=== PATIENT | male | born 1990 | race American Indian/Alaskan Native ===

== ENCOUNTER 2019-11-15 22:27 | Emergency (ER) | payer SELFPAY ==
[2019-11-15 23:46] LABS: Bilirubin,Urine NEG (Negative); Blood,Urine NEG (Negative); Color,Urine Colorless (Yellow); Protein,Urine <15 mg/dL mg/dL (Negative); RBC,Urine < 1.0 /HPF (0.0-6.0); Urobilinogen,Urine < 2.0 mg/dL (<2.0)
[2019-11-16] MEDS ORDERED: SODIUM CHLORIDE 0.9% 1000 ML 1,000 ML IV ONE ×2 (00:21→02:37)
--- NOTE | 2019-11-16 00:21 | Emergency Department Report ---
ED Fever HPI - General Chief Complaint: Fever Stated Complaint: FEVER X'S 2 DAYS PUI?: Yes Time Seen by Provider: 11/16/19 00:17 Source: patient Exam Limitations: no limitations - History of Present Illness Initial Comments: Patient is a 29-year-old male that presents emergency room with complaints of fever. Patient states his fever started yesterday. Patient states that he is also having urinary frequency. Patient denies abdominal pain. Patient denies dysuria. Patient denies flank pain. Patient complains of mild cough. Patient states the cough is dry for patient denies nausea and vomiting. Patient denies diarrhea. Patient denies chest pain. Patient denies shortness of breath. Patient states that he took ibuprofen and his fever improved. Patient denies recent travel. Patient denies recent international travel. Patient denies exposure to the novel coronavirus. Patient denies sick contacts. Patient denies fever and chills. Patient denies diarrhea. Patient denies coming in contact with anybody with symptoms of the novel coronavirus. Timing/Duration: intermittent Fever Severity/Quality: subjective Fever Therapy LINUX ARCHITECT: Ibuprofen Associated Symptoms: denies: abdominal pain, chest pain, confusion, cough, diaphoresis, headache, muscle aches, nausea/vomiting, rash, shortness of breath, sore throat, stiff neck, syncope, weakness ED Review of Systems ROS: Stated complaint: FEVER X'S 2 DAYS Other details as noted in HPI Constitutional: fever Eyes: denies: eye pain, eye discharge, vision change ENT: denies: ear pain, throat pain Respiratory: cough. denies: shortness of breath, wheezing Cardiovascular: denies: chest pain, palpitations Endocrine: no symptoms reported Gastrointestinal: denies: abdominal pain, nausea, diarrhea Genitourinary: urgency, frequency. denies: dysuria Musculoskeletal: denies: back pain, joint swelling, arthralgia Skin: denies: rash, lesions Neurological: denies: headache, weakness, paresthesias Psychiatric: denies: anxiety, depression Hematological/Lymphatic: denies: easy bleeding, easy bruising ED Past Medical Hx - Past Medical History Previous Medical History?: No - Surgical History Past Surgical History?: No - Family History Family history: no significant - Social History Smoking Status: Never Smoker Substance Use Type: None ED Physical Exam - General Limitations: No Limitations General appearance: alert, in no apparent distress - Head Head exam: Present: atraumatic, normocephalic - Eye Eye exam: Present: normal appearance - ENT ENT exam: Present: mucous membranes moist - Neck Neck exam: Present: normal inspection - Respiratory Respiratory exam: Present: normal lung sounds bilaterally. Absent: respiratory distress, wheezes, rales - Cardiovascular Cardiovascular Exam: Present: regular rate, normal rhythm. Absent: systolic murmur, diastolic murmur, rubs, gallop - GI/Abdominal GI/Abdominal exam: Present: soft, normal bowel sounds. Absent: distended, tenderness, guarding - Rectal Rectal exam: Present: deferred - Extremities Exam Extremities exam: Present: normal inspection - Back Exam Back exam: Present: normal inspection - Neurological Exam Neurological exam: Present: alert, oriented X3 - Psychiatric Psychiatric exam: Present: normal affect, normal mood - Skin Skin exam: Present: warm, dry, intact, normal color. Absent: rash ED Course Vital Signs 11/15/19 11/16/19 22:49 00:46 Temperature 101.4 F H 101.9 F H Pulse Rate 110 H Respiratory 18 Rate Blood Pressure 155/101 O2 Sat by Pulse 97 Oximetry - Reevaluation(s) Reevaluation #1: I discussed all results with patient. I discussed plan of care with patient. Patient agrees with plan of care and admission. Patient to be admitted to the hospitalist service. 11/16/19 01:49 - Consultations Consultation #1: Hospitalist consulted for admission. Hospitalist to admit patient. 11/16/19 01:50 ED Medical Decision Making - Lab Data Result diagrams: 11/16/19 00:31 11/16/19 00:31 - Radiology Data Radiology results: report reviewed CHEST 1 VIEW INDICATION: fever. COMPARISON: None. FINDINGS: Support devices: None. Heart: Normal. Lungs/Pleura: No acute pulmonary or pleural findings. IMPRESSION: 1. No acute findings. - Medical Decision Making Patient is a 29-year-old male that presents emergency room with complaints of increased urinary frequency and fever. Patient found to have elevated blood sugar and glucosuria. Patient also found to have a metabolic acidosis with an increased anion gap. Patient's clinical findings are consistent with [facility]. Patient placed on a DKA protocol and insulin drip and fluids. Patient admitted to the hospitalist service and to the ICU. - Differential Diagnosis Fever, urinary frequency, UTI, COVID, diabetes Critical Care Time: Yes Critical care time in (mins) excluding proc time.: 35 Critical care attestation.: If time is entered above; I have spent that time in minutes in the direct care of this critically ill patient, excluding procedure time. Critical Care Time: 35 MINUTES ED Disposition Clinical Impression: Increased urinary frequency, Person under investigation for COVID-19, Metabolic acidosis, Cough, Hyperglycemic hyperosmolar nonketotic coma Fever Qualifiers: Fever type: unspecified Qualified Code(s): R50.9 - Fever, unspecified Disposition: DC-09 OP ADMIT IP TO THIS HOSP Is pt being admited?: Yes Does the pt Need Aspirin: No Condition: Critical Time of Disposition: 01:47
[2019-11-16 00:49] LABS: Basophils % (Auto) 0.7 % (0.0-1.8); Eosinophils % (Auto) 0.1 % (0.0-4.3); Hemoglobin 14.1 gm/dl (11.8-15.2); Lymphocytes # (Auto) 0.5 K/mm3 (1.2-5.4); Lymphocytes % (Auto) 7.4 % (13.4-35.0); Mean Corpuscular HGB Conc 32 % (32-34); Mean Corpuscular Volume 88 fl (84-94); Monocytes # (Auto) 0.8 K/mm3 (0.0-0.8); Monocytes % (Auto) 11.9 % (0.0-7.3); Platelet Count 169 K/mm3 (140-440); Red Blood Count 5.01 M/mm3 (3.65-5.03); Red Cell Distribution Width 14.7 % (13.2-15.2)
[2019-11-16 01:12] LABS: Alanine Aminotransferase 49 units/L (7-56); Albumin 4.3 g/dL (3.9-5); BUN/Creatinine Ratio 12; Blood Urea Nitrogen 13 mg/dL (9-20); Calcium 8.2 mg/dL (8.4-10.2); Hemolysis Index 8
--- NOTE | 2019-11-16 01:13 | XRay Report ---
CHEST 1 VIEW INDICATION: fever. COMPARISON: None. FINDINGS: Support devices: None. Heart: Normal. Lungs/Pleura: No acute pulmonary or pleural findings. IMPRESSION: 1. No acute findings. Signer Name: Murali Deleon MD Signed: 11/16/2019 1:08 AM Workstation Name: [id number]
[2019-11-16] MEDS ORDERED: DEXTROSE 50% IN WATER (25GM) 50 ML SYRINGE IV PRN (01:47)
[2019-11-16] MEDS ORDERED: D5W/0.45% NACL/KCL 20 MEQ 20 MEQ/1,000 ML BAG IV SCH ×2 (02:00→09:00)
[2019-11-16] MEDS ORDERED: INSULIN REGULAR, HUMAN 100 UNITS in SODIUM CHLORIDE 0.9% 99 ML IV SCH (02:00)
[2019-11-16 02:33] LABS: BUN/Creatinine Ratio 12; Blood Urea Nitrogen 12 mg/dL (9-20); Calcium 8.4 mg/dL (8.4-10.2); Hemolysis Index 7
[2019-11-16] MEDS ORDERED: SODIUM CHLORIDE 0.9% 1000 ML 1,000 ML ONE ×2 (02:40→05:43)
[2019-11-16] MEDS ORDERED: ONDANSETRON 4 MG/2 ML INJ IV PRN (02:42)
[2019-11-16] MEDS ORDERED: ACETAMINOPHEN 325 MG TAB PO PRN (02:42)
[2019-11-16] MEDS ORDERED: SODIUM CHLORIDE 0.9% 1000 ML 1,000 ML IV SCH ×2 (02:45→12:00)
--- NOTE | 2019-11-16 03:08 | History and Physical Report ---
History of Present Illness Date of examination: 11/16/19 Date of admission: 11/16/19 02:28 Chief complaint: 29 year old male presenting with fever that started 24 hours prior to presentation, there is history of dry cough , polyuria and polydipsia. There is no history of cherst pain, shortness of breath, bodyache or dizziness History of present illness: 29 year male presenting with fever, dry cough and polyuria.There is no history of chest pain , chills, dizziness ,nausea or vomiting. Past History Past Surgical History: No surgical history Social history: no significant social history Family history: no significant family history Medications and Allergies Allergies Allergy/AdvReac Type Severity Reaction Status Date / Time No Known Allergies Allergy Verified 11/16/19 01:58 Active Meds: Active Medications Acetaminophen (Tylenol) 650 mg PO Q4H PRN PRN Reason: Pain, Mild (1-3) Dextrose (D50w (25gm) Syringe) 50 ml IV Q30MIN PRN; Protocol PRN Reason: Hypoglycemia Enoxaparin Sodium (Enoxaparin) 40 mg SUB-Q QDAY PITA Insulin Human Regular 100 (units/ Sodium Chloride) 100 mls @ 1 mls/hr IV TITR PITA; Protocol Last Admin: 11/16/19 02:33 Dose: 8 units/hr, 8 mls/hr Documented by: Sodium Chloride (Nacl 0.9% 1000 Ml) 1,000 mls @ 999 mls/hr IV BOLUS ONE Stop: 11/16/19 03:37 Last Admin: 11/16/19 02:42 Dose: 999 mls/hr Documented by: Sodium Chloride (Nacl 0.9% 1000 Ml) 1,000 mls @ 200 mls/hr IV DIRECT PITA Ondansetron HCl (Zofran) 4 mg IV Q8H PRN PRN Reason: Nausea And Vomiting Review of Systems Constitutional: weight gain, fever, no weight loss, no chills, no sweats, no night sweats, no fatigue, no weakness, no malaise Eyes: bilateral: other (NO BILATERAL EYE SYMPTOMS) Ears, nose, mouth and throat: no ear pain, no ear discharge, no nose pain, no nasal congestion, no nasal discharge, no sinus pressure, no dysphagia, no hoarseness, no sore throat, no swelling in mouth, no headache, no vertigo Cardiovascular: no chest pain, no palpitations, no syncope, no lightheadedness, no phlebitis Respiratory: cough, no excessive sputum, no shortness of breath, no wheezing Gastrointestinal: no abdominal pain, no nausea, no vomiting, no constipation, no change in bowel habits, no hematochezia, no loss of appetite, no heartburn, no indigestion Genitourinary Male: no dysuria, no hematuria, no flank pain, no urinary frequency, no urinary hesitancy, no nocturia, no genital pain, no testicular pain, no polyuria Rectal: no pain, no itching Musculoskeletal: no neck stiffness, no neck pain, no low back pain, no shooting leg pain, no hot joints, no morning stiffness, no muscle weakness, no myalgias Integumentary: no rash, no pruritis, no redness, no wounds, no jaundice, no lesions, no acne, no dryness Neurological: no head injury, no seizures, no syncope, no tremors, no ataxia, no vertigo, no headaches, no migraines, no convulsions, no change in speech, no confusion, no memory loss Psychiatric: no anxiety, no memory loss, no insomnia, no confusion, no irritability Endocrine: polydipsia, polyuria, nocturia, no cold intolerance, no excessive sweating, no flushing, no thyroid mass, no palpatations Hematologic/Lymphatic: no easy bruising, no easy bleeding, no lymphadenopathy, no lymphedema Allergic/Immunologic: no urticaria, no allergic rhinitis Exam - Constitutional Vitals: Temp Pulse Resp BP Pulse Ox 98.3 F 100 H 19 135/86 97 11/16/19 02:14 11/16/19 02:02 11/16/19 02:02 11/16/19 02:02 11/15/19 22:49 General appearance: Present: no acute distress - EENT Eyes: Present: PERRL, EOM intact ENT: hearing intact - Neck Neck: Present: supple, normal ROM. Absent: enlarged thyroid, carotid bruits - Respiratory Respiratory effort: normal - Cardiovascular Rhythm: regular Heart Sounds: Present: S1 & S2. Absent: gallop, systolic murmur, diastolic m urmur - Extremities Extremities: no ischemia, No edema Peripheral Pulses: within normal limits - Abdominal General gastrointestinal: Present: soft, non-tender, non-distended. Absent: tender, distended, rigid, hepatomegaly, splenomegaly, mass Male genitourinary: Present: deferred - Rectal Rectal Exam: deferred - Integumentary Integumentary: Present: clear, warm, dry - Musculoskeletal Musculoskeletal: strength equal bilaterally - Psychiatric Psychiatric: appropriate mood/affect - Neurologic Neurologic: CNII-XII intact Results - Labs CBC & Chem 7: 11/16/19 00:31 11/16/19 01:52 Labs: Laboratory Last Values WBC 7.0 K/mm3 (4.5-11.0) 11/16/19 00:31 RBC 5.01 M/mm3 (3.65-5.03) 11/16/19 00:31 Hgb 14.1 gm/dl (11.8-15.2) 11/16/19 00:31 Hct 44.0 % (35.5-45.6) 11/16/19 00:31 MCV 88 fl (84-94) 11/16/19 00:31 MCH 28 pg (28-32) 11/16/19 00: MCHC 32 % (32-34) 11/16/19 00:31 RDW 14.7 % (13.2-15.2) 11/16/19 00:31 Plt Count 169 K/mm3 (140-440) 11/16/19 00:31 Lymph % (Auto) 7.4 % (13.4-35.0) L 11/16/19 00:31 [place] % (Auto) 11.9 % (0.0-7.3) H 11/16/19 00:31 Eos % (Auto) 0.1 % (0.0-4.3) 11/16/19 00: Baso % (Auto) 0.7 % (0.0-1.8) 11/16/19 00:31 Lymph # 0.5 K/mm3 (1.2-5.4) L 11/16/19 00:31 [place] # 0.8 K/mm3 (0.0-0.8) 11/16/19 00:31 Eos # 0.0 K/mm3 (0.0-0.4) 11/16/19 00:31 Baso # 0.0 K/mm3 (0.0-0.1) 11/16/19 00: Seg Neutrophils % 79.9 % (40.0-70.0) H 11/16/19 00:31 Seg Neutrophils # 5.6 K/mm3 (1.8-7.7) 11/16/19 00:31 D-Dimer 158.99 ng/mlDDU (0-234) 11/16/19 01:57 VBG pH 7.355 (7.320-7.420) 11/16/19 00:31 Sodium 131 mmol/L (137-145) L 11/16/19 01:52 Potassium 4.8 mmol/L (3.6-5.0) 11/16/19 01:52 Chloride 93.6 mmol/L (98-107) L 11/16/19 01:52 Carbon Dioxide 21 mmol/L (22-30) L 11/16/19 01:52 Anion Gap 21 mmol/L 11/16/19 01:52 BUN 12 mg/dL (9-20) 11/16/19 01:52 Creatinine 1.0 mg/dL (0.8-1.5) 11/16/19 01:52 Estimated GFR > 60 ml/min 11/16/19 01:52 BUN/Creatinine Ratio 12 % 11/16/19 01:52 Glucose 659 mg/dL (75-100) H* 11/16/19 01:52 Calcium 8.4 mg/dL (8.4-10.2) 11/16/19 01:52 Phosphorus 3.80 mg/dL (2.5-4.5) 11/16/19 01:52 Magnesium 2.00 mg/dL (1.7-2.3) 11/16/19 01:52 Total Bilirubin 0.50 mg/dL (0.1-1.2) 11/16/19 00:31 AST 27 units/L (5-40) 11/16/19 00:31 ALT 49 units/L (7-56) 11/16/19 00:31 Alkaline Phosphatase 94 units/L (35-129) 11/16/19 00:31 Total Protein 7.5 g/dL (6.3-8.2) 11/16/19 00:31 Albumin 4.3 g/dL (3.9-5) 11/16/19 00:31 Albumin/Globulin Ratio 1.3 % 11/16/19 00:31 Urine Color Colorless (Yellow) 11/15/19 Unknown Urine Turbidity Clear (Clear) 11/15/19 Unknown Urine pH 6.0 (5.0-7.0) 11/15/19 Unknown Ur Specific [place] 1.026 (1.003-1.030) 11/15/19 Unknown Urine Protein <15 mg/dl mg/dL (Negative) 11/15/19 Unknown Urine Glucose (UA) >=500 mg/dL (Negative) 11/15/19 Unknown Urine Ketones Tr mg/dL (Negative) 11/15/19 Unknown Urine Blood Neg (Negative) 11/15/19 Unknown Urine Nitrite Neg (Negative) 11/15/19 Unknown Urine Bilirubin Neg (Negative) 11/15/19 Unknown Urine Urobilinogen < 2.0 mg/dL (<2.0) 11/15/19 Unknown Ur Leukocyte Esterase Neg (Negative) 11/15/19 Unknown Urine WBC (Auto) 1.0 /HPF (0.0-6.0) 11/15/19 Unknown Urine RBC (Auto) < 1.0 /HPF (0.0-6.0) 11/15/19 Unknown Webber/IV: IV Catheter Type [Left INT / Saline Lock Antecubital] Assessment and Plan - Patient Problems (1) Fever Current Visit: Yes Status: Acute Qualifiers: Fever type: unspecified Qualified Code(s): R50.9 - Fever, unspecified Plan to address problem: 1.Tylenol po for fever (2) Hyperglycemic hyperosmolar nonketotic coma Current Visit: Yes Status: Acute Plan to address problem: 1. I.V Insulin Drip in ICU 2. I.V Normal saline 3. Serial BMP tests 4. Switching of I.V Normal saline to I.V D5 1/2 Normal saline with KCL when blood sugar is less than 250mg/DL 5. Discontinuation of Insulin drip when hyperglycemia is corrected (3) Person under investigation for COVID-19 Current Visit: Yes Status: Acute Plan to address problem: 1. Covid 19 Testing 2. Contact and droplet Isolation 3. Infectious disease consult
[2019-11-16] MEDS ORDERED: ACETAMINOPHEN 325 MG TAB ONE (05:44)
[2019-11-16 06:20] LABS: BUN/Creatinine Ratio 11; Blood Urea Nitrogen 9 mg/dL (9-20); Calcium 8.3 mg/dL (8.4-10.2); Hemolysis Index 11
[2019-11-16 09:23] LABS: BUN/Creatinine Ratio 9; Blood Urea Nitrogen 8 mg/dL (9-20); Calcium 8.3 mg/dL (8.4-10.2); Hemolysis Index 10
--- NOTE | 2019-11-16 09:52 | Event Note ---
Date: 11/16/19 Anion GAP is closed. Suggest starting regimen for diabetes. When patient arrived his gap, calculated was only 17. Appears to be more HHNK. Non etheless, does not require ICU a this point.
[2019-11-16] MEDS ORDERED: ENOXAPARIN 40 MG/0.4 ML INJ SUB-Q SCH (10:00)
[2019-11-16 11:48] VITALS: BP 145/88
[2019-11-16] MEDS ORDERED: INSULIN LISPRO 100 UNIT/ML SUB-Q SCH (12:00)
--- NOTE | 2019-11-16 12:07 | Progress Note ---
Assessment and Plan Assessment and plan: --PUI/patient is positive for coronavirus PCR this afternoon Current Visit: Yes Status: Acute Contact and droplet isolation , ID consult Inflammatory markers , steroids PPE protocols --Febrile illness Current Visit: Yes Status: Acute Antipyretics, pancultures, empiric antibiotics Rule out COVID-19, isolation precautions --Hyperosmolar nonketotic hyperglycemia; Current Visit: Yes Status: Acute On insulin drip, sugars reasonable level Start ADA diet , change IV fluids to normal saline Accu-Chek sliding scale coverage Long-acting insulin, check hemoglobin A1c Diabetic education, diabetic diet education DC planning, home health nurse for disease monitoring at discharge, --Hyponatremia; pseudohyponatremia Current Visit: Yes Status: Acute improving as blood sugars improved Closely monitor electrolytes --DVT prophylaxis; Lovenox Downgrade to MedSurg/medical floor We will monitor the patient and adjust management as needed Plan of care reviewed with the patient and his nurse Critical care time 45 min History Interval history: Patient seen and examined, in the ER awaiting bed assignment Patient admitted for hyperosmolar nonketotic hyperglycemia On insulin drip, P UI, COVID test positive Patient's blood sugars in the reasonable range Patient is in isolation Vital signs reviewed Hospitalist Physical - Constitutional Vitals: Temp Pulse Resp BP Pulse Ox 99.3 F 106 H 19 145/88 98 11/16/19 06:39 11/16/19 11:47 11/16/19 11:47 11/16/19 11:47 11/16/19 11:47 General appearance: Present: no acute distress, well-nourished, obese - EENT Eyes: Present: PERRL, EOM intact - Neck Neck: Present: supple, normal ROM - Respiratory Respiratory effort: normal Respiratory: bilateral: diminished, negative: rales, rhonchi, wheezing - Cardiovascular Rhythm: regular Heart Sounds: Present: S1 & S2 - Extremities Extremities: no ischemia, No edema - Abdominal General gastrointestinal: soft, non-tender, non-distended, normal bowel sounds - Integumentary Integumentary: Present: clear, warm - Psychiatric Psychiatric: appropriate mood/affect, cooperative - Neurologic Neurologic: moves all extremities Results - Labs CBC & Chem 7: 11/16/19 00:31 11/16/19 08:51 Labs: Laboratory Last Values WBC 7.0 K/mm3 (4.5-11.0) 11/16/19 00:31 RBC 5.01 M/mm3 (3.65-5.03) 11/16/19 00:31 Hgb 14.1 gm/dl (11.8-15.2) 11/16/19 00:31 Hct 44.0 % (35.5-45.6) 11/16/19 00:31 MCV 88 fl (84-94) 11/16/19 00:31 MCH 28 pg (28-32) 11/16/19 00:31 MCHC 32 % (32-34) 11/16/19 00:31 RDW 14.7 % (13.2-15.2) 11/16/19 00:31 Plt Count 169 K/mm3 (140-440) 11/16/19 00:31 Lymph % (Auto) 7.4 % (13.4-35.0) L 11/16/19 00:31 [place] % (Auto) 11.9 % (0.0-7.3) H 11/16/19 00:31 Eos % (Auto) 0.1 % (0.0-4.3) 11/16/19 00:31 Baso % (Auto) 0.7 % (0.0-1.8) 11/16/19 00:31 Lymph # 0.5 K/mm3 (1.2-5.4) L 11/16/19 00:31 [place] # 0.8 K/mm3 (0.0-0.8) 11/16/19 00:31 Eos # 0.0 K/mm3 (0.0-0.4) 11/16/19 00:31 Baso # 0.0 K/mm3 (0.0-0.1) 11/16/19 00:31 Seg Neutrophils % 79.9 % (40.0-70.0) H 11/16/19 00:31 Seg Neutrophils # 5.6 K/mm3 (1.8-7.7) 11/16/19 00:31 D-Dimer 158.99 ng/mlDDU (0-234) 11/16/19 01:57 VBG pH 7.355 (7.320-7.420) 11/16/19 00:31 Sodium 138 mmol/L (137-145) 11/16/19 08:51 Potassium 3.9 mmol/L (3.6-5.0) 11/16/19 08:51 Chloride 102.7 mmol/L (98-107) 11/16/19 08:51 Carbon Dioxide 24 mmol/L (22-30) 11/16/19 08:51 Anion Gap 15 mmol/L 11/16/19 08:51 BUN 8 mg/dL (9-20) L 11/16/19 08:51 Creatinine 0.9 mg/dL (0.8-1.5) 11/16/19 08:51 Estimated GFR > 60 ml/min 11/16/19 08:51 BUN/Creatinine Ratio 9 % 11/16/19 08:51 Glucose 224 mg/dL (75-100) H 11/16/19 08:51 POC Glucose 353 (70-105) H 11/16/19 11:19 Calcium 8.3 mg/dL (8.4-10.2) L 11/16/19 08:51 Phosphorus 3.80 mg/dL (2.5-4.5) 11/16/19 01:52 Magnesium 2.00 mg/dL (1.7-2.3) 11/16/19 01:52 Ferritin 585.2 ng/mL (13.0-400.0) H 11/16/19 01:57 Total Bilirubin 0.50 mg/dL (0.1-1.2) 11/16/19 00:31 AST 27 units/L (5-40) 11/16/19 00:31 ALT 49 units/L (7-56) 11/16/19 00:31 Alkaline Phosphatase 94 units/L (35-129) 11/16/19 00:31 Lactate Dehydrogenase 194 units/L (91-180) H 11/16/19 01:52 C-Reactive Protein 3.30 mg/dL (0.00-1.30) H 11/16/19 01:52 Total Protein 7.5 g/dL (6.3-8.2) 11/16/19 00:31 Albumin 4.3 g/dL (3.9-5) 11/16/19 00:31 Albumin/Globulin Ratio 1.3 % 11/16/19 00:31 Procalcitonin 0.34 ng/mL (<0.15) 11/16/19 01:57 Urine Color Colorless (Yellow) 11/15/19 Unknown Urine Turbidity Clear (Clear) 11/15/19 Unknown Urine pH 6.0 (5.0-7.0) 11/15/19 Unknown Ur Specific [place] 1.026 (1.003-1.030) 11/15/19 Unknown Urine Protein <15 mg/dl mg/dL (Negative) 11/15/19 Unknown Urine Glucose (UA) >=500 mg/dL (Negative) 11/15/19 Unknown Urine Ketones Tr mg/dL (Negative) 11/15/19 Unknown Urine Blood Neg (Negative) 11/15/19 Unknown Urine Nitrite Neg (Negative) 11/15/19 Unknown Urine Bilirubin Neg (Negative) 11/15/19 Unknown Urine Urobilinogen < 2.0 mg/dL (<2.0) 11/15/19 Unknown Ur Leukocyte Esterase Neg (Negative) 11/15/19 Unknown Urine WBC (Auto) 1.0 /HPF (0.0-6.0) 11/15/19 Unknown Urine RBC (Auto) < 1.0 /HPF (0.0-6.0) 11/15/19 Unknown Webber/IV: IV Catheter Type [Left INT / Saline Lock Antecubital] Active Medications - Current Medications Current Medications: Generic Name Dose Route Start Last Admin Trade Name Freq PRN Reason Stop Dose Admin Acetaminophen 650 mg 11/16/19 02:42 11/16/19 05:43 Tylenol PO 650 mg Q4H PRN Administration Pain, Mild (1-3) Enoxaparin Sodium 40 mg 11/16/19 10:00 Enoxaparin SUB-Q QDAY [facility] Sodium Chloride 1,000 mls @ 100 mls/hr 11/16/19 12:00 Nacl 0.9% 1000 Ml IV DIRECT PITA Insulin Human Isoph/Insulin Regular 10 unit 11/16/19 17:00 Humulin 70/30 SUB-Q BIDDIAB PITA Insulin Human Lispro 0 unit 11/16/19 12:00 Humalog SUB-Q ACHS [facility] Protocol Ondansetron HCl 4 mg 11/16/19 02:42 Zofran IV Q8H PRN Nausea And Vomiting
[2019-11-16] MEDS ORDERED: INSULIN NPH/REGULAR 70/30 INJ SUB-Q SCH (17:00)
--- NOTE | 2019-11-16 21:23 | Consultation ---
History of Present Illness - Reason for Consult Consult date: 11/16/19 - History of Present Illness 29-year-old male no past medical history admitted to the hospital with cough, polyuria, polydipsia. Denies any shortness of breath or dizziness. COVID-19 testing positive Febrile to 101.9 with a normal white count. Not on antibiotics. Ferritin elevated. Blood cultures pending. COVID-19 positive. Imaging personally reviewed: Chest x-ray: No abnormality. Review of Systems: Bold if positive, otherwise negative General: fevers, chills, rigors HEENT: visual disturbance, diplopia, eye pain Respiratory: cough, sputum, hemoptysis, shortness of breath Cardiovascular: chest pain, syncope Gastrointestinal: nausea, vomiting, diarrhea, abdominal pain Genitourinary: dysuria, hematuria, flank pain Musculoskeletal: neck pain, back pain, joint pain, edema Neurologic: headaches, seizures Hematologic: easy bruising or bleeding Endocrine: night sweats, acute weight loss Skin: rash, jaundice, redness Psychiatric: suicidal, homicidal ideation Past History Past Medical History: No medical history Past Surgical History: No surgical history Social history: no significant social history Family history: no significant family history Medications and Allergies Allergies Allergy/AdvReac Type Severity Reaction Status Date / Time No Known Allergies Allergy Verified 11/16/19 01:58 Physical Examination - Physical Exam Narrative exam: Physical Exam: Constitutional: Alert, cooperative. No acute distress Head, Ears, Nose: Normocephalic, atraumatic. External ears, nose normal Eyes: Conjunctivae/corneas clear. No icterus. No ptosis. Neck: Supple, no meningeal signs Oral: dentition fair, no thrush Cardiovascular: S1, S2 normal. Respiratory: Good air entry, clear to auscultation bilaterally GI: Soft, non-tender; bowel sounds normal. No peritoneal signs. Musculoskeletal: No pedal edema, no cyanosis. Skin: No rash or abscess Hem/Lymphatic: No palpable cervical or supraclavicular nodes. No lymphangitis Psych: Mood ok. Affect normal Neurological: Awake, alert, oriented. No gross abnormality - Constitutional Vitals: Vital Signs Temp Pulse Resp BP Pulse Ox 99.8 F H 106 H 19 145/88 98 11/16/19 15:44 11/16/19 11:47 11/16/19 11:47 11/16/19 11:47 11/16/19 11:47 Temperature -Last 24 Hours Temperature 99.8 F Temperature 99.3 F Temperature 100.7 F Temperature 98.5 F Temperature 98.3 F Temperature 101.9 F Temperature 101.4 F Results - Labs CBC & Chem 7: 11/16/19 00:31 11/16/19 08:51 Labs: Abnormal lab results 11/16/19 11/16/19 11/16/19 Range/Units 00:31 00:31 01:52 Lymph % (Auto) 7.4 L (13.4-35.0) % [place] % (Auto) 11.9 H (0.0-7.3) % Lymph # 0.5 L (1.2-5.4) K/mm3 Seg Neutrophils % 79.9 H (40.0-70.0) % Sodium 127 L 131 L (137-145) mmol/L Chloride 89.4 L 93.6 L (98-107) mmol/L Carbon Dioxide 20 L 21 L (22-30) mmol/L BUN (9-20) mg/dL Glucose 836 H* 659 H* (75-100) mg/dL POC Glucose (70-105) Calcium 8.2 L (8.4-10.2) mg/dL Ferritin (13.0-400.0) ng/mL Lactate Dehydrogenase 194 H (91-180) units/L C-Reactive Protein 3.30 H (0.00-1.30) mg/dL Coronavirus (PCR) (Negative) 11/16/19 11/16/19 11/16/19 Range/Units 01:57 03:46 04:51 Lymph % (Auto) (13.4-35.0) % [place] % (Auto) (0.0-7.3) % Lymph # (1.2-5.4) K/mm3 Seg Neutrophils % (40.0-70.0) % Sodium (137-145) mmol/L Chloride (98-107) mmol/L Carbon Dioxide (22-30) mmol/L BUN (9-20) mg/dL Glucose (75-100) mg/dL POC Glucose 449 H 354 H (70-105) Calcium (8.4-10.2) mg/dL Ferritin 585.2 H (13.0-400.0) ng/mL Lactate Dehydrogenase (91-180) units/L C-Reactive Protein (0.00-1.30) mg/dL Coronavirus (PCR) (Negative) 11/16/19 11/16/19 11/16/19 Range/Units 05:48 05:50 06:50 Lymph % (Auto) (13.4-35.0) % [place] % (Auto) (0.0-7.3) % Lymph # (1.2-5.4) K/mm3 Seg Neutrophils % (40.0-70.0) % Sodium (137-145) mmol/L Chloride (98-107) mmol/L Carbon Dioxide 21 L (22-30) mmol/L BUN (9-20) mg/dL Glucose 323 H (75-100) mg/dL POC Glucose 337 H 294 H (70-105) Calcium 8.3 L (8.4-10.2) mg/dL Ferritin (13.0-400.0) ng/mL Lactate Dehydrogenase (91-180) units/L C-Reactive Protein (0.00-1.30) mg/dL Coronavirus (PCR) (Negative) 11/16/19 11/16/19 11/16/19 Range/Units 08:00 08:22 08:51 Lymph % (Auto) (13.4-35.0) % [place] % (Auto) (0.0-7.3) % Lymph # (1.2-5.4) K/mm3 Seg Neutrophils % (40.0-70.0) % Sodium (137-145) mmol/L Chloride (98-107) mmol/L Carbon Dioxide (22-30) mmol/L BUN 8 L (9-20) mg/dL Glucose 224 H (75-100) mg/dL POC Glucose 230 H (70-105) Calcium 8.3 L (8.4-10.2) mg/dL Ferritin (13.0-400.0) ng/mL Lactate Dehydrogenase (91-180) units/L C-Reactive Protein (0.00-1.30) mg/dL Coronavirus (PCR) Positive A (Negative) 11/16/19 11/16/19 Range/Units 09:52 11:19 Lymph % (Auto) (13.4-35.0) % [place] % (Auto) (0.0-7.3) % Lymph # (1.2-5.4) K/mm3 Seg Neutrophils % (40.0-70.0) % Sodium (137-145) mmol/L Chloride (98-107) mmol/L Carbon Dioxide (22-30) mmol/L BUN (9-20) mg/dL Glucose (75-100) mg/dL POC Glucose 246 H 353 H (70-105) Calcium (8.4-10.2) mg/dL Ferritin (13.0-400.0) ng/mL Lactate Dehydrogenase (91-180) units/L C-Reactive Protein (0.00-1.30) mg/dL Coronavirus (PCR) (Negative) Assessment and Plan Cultures: Blood culture 11/16/2019 pending A/P: 29-year-old man no history admitted with COVID-19, found to be diabetic. #COVID-19: Patient with dry cough, however chest x-ray with no abnormality patient on room air, no acute respiratory distress. Recommend continue supportive care, follow laboratory markers for disease progression. No antibiotics necessary. #Diabetes: Glycemic control for best outcomes Recs: -Continue supportive care -Follow inflammatory markers to include LDH, d-dimer, ferritin, CRP every 48 hours to monitor for disease progression -No antibiotics required -If patient requires oxygen supplementation will reconsider further COVID-19 treatments Thank you for the consult, we will continue to follow. MD [facility] ([facility] M: [phone] O: [phone] F: [phone]
== END 2019-11-16 15:17 | disposition admitted as inpatient to this hospital (09) ==
LOC: ED 22:27 → UNDOADMIN 11-16 02:28 → CC1 11-16 02:28 → 3A 11-16 13:04 → CC1 11-16 13:04 → 3A 11-16 13:43
DX: R53.1 Weakness (principal); E87.2 Acidosis; E72.51 Non-ketotic hyperglycinemia; R50.9 Fever, unspecified
CPT/HCPCS: 36415; 71045; 80048; 80053; 81001; 82728; 82805; 82962; 83615; 83735; 84100; 84145; 85025; 85379; 86140; 87040; 87086; 96361; 96365; 96366; 99284; J7030; U0003; J1815

== ENCOUNTER 2020-12-30 19:13 | Emergency (ER) | payer OTHER ==
--- NOTE | 2020-12-30 20:40 | Event Note ---
ED Screening Note ED Screening Note: Patient presents for hyperglycemia He states he checked his sugar and it was 590 Reports he had one episode of vomiting yesterday and has had fatigue no vomiting today He reports he has not taken anything for his diabetes for a year He was previously prescribed insulin but reports he was only given a 30-day supply and stopped after his supply ran out and did not follow-up with a primary care doctor This initial assessment/diagnostic orders/clinical plan/treatment(s) is/are subject to change based on patients health status, clinical progression and re- assessment by fellow clinical providers in the ED. Further treatment and workup at subsequent clinical providers discretion. Patient/guardian urged not to elope from the ED as their condition may be serious if not clinically assessed and managed. Initial orders include: Labs, urine
[2020-12-30 21:05] LABS: Basophils # (Auto) 0.1 K/mm3 (0.0-0.1); Basophils % (Auto) 0.6 % (0.0-1.8); Eosinophils # (Auto) 0.1 K/mm3 (0.0-0.4); Eosinophils % (Auto) 1.2 % (0.0-4.3); Hematocrit 47.6 % (35.5-45.6); Hemoglobin 15.4 gm/dl (11.8-15.2); Lymphocytes # (Auto) 1.3 K/mm3 (1.2-5.4); Lymphocytes % (Auto) 11.8 % (13.4-35.0); Mean Corpuscular HGB Conc 32 % (32-34); Mean Corpuscular Volume 86 fl (84-94); Monocytes # (Auto) 0.7 K/mm3 (0.0-0.8); Monocytes % (Auto) 6.6 % (0.0-7.3); Platelet Count 208 K/mm3 (140-440); Red Blood Count 5.53 M/mm3 (3.65-5.03); Red Cell Distribution Width 15.1 % (13.2-15.2)
[2020-12-30 21:30] LABS: Alanine Aminotransferase 30 units/L (7-56); Albumin 4.7 g/dL (3.9-5); BUN/Creatinine Ratio 11; Blood Urea Nitrogen 14 mg/dL (9-20); Calcium 8.8 mg/dL (8.4-10.2); Hemolysis Index 3
[2020-12-30] MEDS ORDERED: INSULIN REGULAR, HUMAN 100 UNITS/1 ML IV ONE (21:57)
[2020-12-30] MEDS ORDERED: LACTATED RINGERS 2,000 ML IV ONE (21:57)
--- NOTE | 2020-12-30 22:03 | Emergency Department Report ---
ED General Adult HPI - General Chief complaint: Hyperglycemia Stated complaint: I think my sugar is high PUI?: No Time Seen by Provider: 12/30/20 20:39 Source: patient, RN notes reviewed, old records reviewed Mode of arrival: Ambulatory Limitations: No Limitations - History of Present Illness Initial comments: The patient was evaluated in the emergency department for symptoms described in the history of present illness. He/she was evaluated in the context of the global COVID-19 pandemic, which necessitated consideration that the patient might be at risk for infection with the virus that causes COVID-19. Institutional protocols and algorithms that pertain to the evaluation of patients at risk for COVID-19 are in a state of rapid change based on information released by regulatory bodies including the CDC and federal and state organizations. These policies and algorithms were followed during the patient's care in the emergency department. Please note that these policies, procedures and recommendations changed on a rapid basis. The patient is a 30-year-old gentleman. He is not known to myself previously. He does not have a primary care doctor. He has a past medical history of obesity, hyperglycemia, elevated blood pressure, without formal diagnosis of diabetes or hypertension. He presents to the ER today with a complaint of "I think I have diabetes." He reported that he checks his glucose at home, and found it to be almost 600. He complains of polyuria and polydipsia. He denies physical pain. He currently denies headache, neck pain, chest pain, abdominal pain, shortness of breath, cough, loss of taste and smell. He has lost a few pounds. He works as a manager property. He does consume a lot of fruit juices, and simple carbohydrates. He denies tobacco, smoke products and recreational drug use. -: Gradual, week(s) Consistency: intermittent Improves with: none Worsens with: none - Related Data Allergies Allergy/AdvReac Type Severity Reaction Status Date / Time No Known Allergies Allergy Verified 12/30/20 20:40 ED Review of Systems ROS: Stated complaint: BLOOD SUGAR 590 Other details as noted in HPI Constitutional: denies: fever Eyes: denies: eye discharge ENT: denies: epistaxis Respiratory: denies: cough Cardiovascular: denies: chest pain Genitourinary: frequency. denies: dysuria Neurological: denies: headache Hematological/Lymphatic: denies: easy bleeding ED Past Medical Hx - Past Medical History Previous Medical History?: Yes Hx Diabetes: Yes - Surgical History Past Surgical History?: No - Social History Smoking Status: Never Smoker Substance Use Type: None ED Physical Exam - General Limitations: No Limitations General appearance: alert, in no apparent distress - Head Head exam: Present: atraumatic, normocephalic - Eye Eye exam: Present: normal appearance, EOMI. Absent: nystagmus - ENT ENT exam: Present: normal exam, normal orophraynx, mucous membranes moist, normal external ear exam - Neck Neck exam: Present: normal inspection, full ROM. Absent: tenderness, meningismus - Respiratory Respiratory exam: Present: normal lung sounds bilaterally. Absent: respiratory distress, wheezes, rales, rhonchi, stridor, chest wall tenderness, accessory muscle use, decreased breath sounds, prolonged expiratory - Cardiovascular Cardiovascular Exam: Present: regular rate, normal rhythm, normal heart sounds. Absent: bradycardia, tachycardia, irregular rhythm, systolic murmur, diastolic murmur, rubs, gallop - GI/Abdominal GI/Abdominal exam: Present: soft. Absent: distended, tenderness, guarding, rebound, rigid, pulsatile mass - Rectal Rectal exam: Present: deferred - Extremities Exam Extremities exam: Present: normal inspection, full ROM, other (2+ pulses noted in the bilateral upper and lower extremities. There is no palpable cord. negative Homans sign. Muscular compartments are soft. The pelvis is stable.). Absent: pedal edema, calf tenderness - Back Exam Back exam: Present: normal inspection. Absent: tenderness, CVA tenderness (R), CVA tenderness (L), paraspinal tenderness, vertebral tenderness - Neurological Exam Neurological exam: Present: alert, oriented X3, normal gait, other (No facial droop. Tongue midline. Extraocular movements intact bilaterally. Facial sensation intact to light touch in V1, V2, V3 distribution bilaterally. 5 and a 5 strength in 4 extremities. Sensation intact to light touch in 4 extremities.). Absent: motor sensory deficit - Psychiatric Psychiatric exam: Present: normal affect, normal mood - Skin Skin exam: Present: warm, dry, intact, normal color. Absent: rash ED Course Vital Signs 12/30/20 20:37 Temperature 98.3 F Pulse Rate 95 H Respiratory 18 Rate Blood Pressure 152/102 [Left] O2 Sat by Pulse 96 Oximetry - Reevaluation(s) Reevaluation #1: 12/30/20 22:01 Differential diagnosis, including but not limited to: Obesity, hypertension, hyperglycemia, type 2 diabetes Assessment and plan: 30-year-old gentleman, who is afebrile with reassuring vital signs with exception of elevated blood pressure (please reference the [facility] [employer] of emergency physicians clinical policy on asymptomatic hypertension), with likely symptomatic type 2 diabetes, manifest by polyuria, polydipsia, hypoglycemia, who does not have anion gap acidosis. Start IV fluids, and administer insulin. Extensive discussion had with patient regarding nature of type 2 diabetes. Extensive discussion had with patient regarding need to pursue diet, lifestyle modifications. I offered the patient Metformin, however, he declined, and stated that he would prefer to pursue diet lifestyle modifications. I think that this is a reasonable plan of action, because he will need to pursue diet and lifestyle modifications irrespective of being on oral medications or not. Therefore, through shared decision-making, we agreed to treat his symptoms and hy perglycemia here in the emergency room, and discharged with instructions to follow-up with outpatient primary care for repeat checkup and evaluation. We discussed appropriate diet, and resources that are available to him, including [place] diabetes [employer] website, and free applications that he may download on his smart phone to assist with modification of diet. 12/31/20 00:23 Patient sleeping comfortably. Repeat Accu-Chek improved. Vital signs stable and unremarkable. Suitable for discharge with outpatient follow-up. Patient states he is ready for discharge, all questions answered, on his final reassessment, he was watching videos on his cellular phone, and did not appear to be in any acute distress. He endorses reliability for follow-up. 12/31/20 00:28 ED Medical Decision Making - Lab Data Result diagrams: 12/30/20 20:47 12/30/20 20:47 Vital Signs 12/30/20 20:37 Temperature 98.3 F Pulse Rate 95 H Respiratory 18 Rate Blood Pressure 152/102 [Left] O2 Sat by Pulse 96 Oximetry Lab Results 12/30/20 12/30/20 12/30/20 Range/Units 20:36 20:47 20:47 WBC 11.0 (4.5-11.0) K/mm3 RBC 5.53 H (3.65-5.03) M/mm3 Hgb 15.4 H (11.8-15.2) gm/dl Hct 47.6 H (35.5-45.6) % MCV 86 (84-94) fl MCH 28 (28-32) pg MCHC 32 (32-34) % RDW 15.1 (13.2-15.2) % Plt Count 208 (140-440) K/mm3 Lymph % (Auto) 11.8 L (13.4-35.0) % [place] % (Auto) 6.6 (0.0-7.3) % Eos % (Auto) 1.2 (0.0-4.3) % Baso % (Auto) 0.6 (0.0-1.8) % Lymph # (Auto) 1.3 (1.2-5.4) K/mm3 [place] # (Auto) 0.7 (0.0-0.8) K/mm3 Eos # (Auto) 0.1 (0.0-0.4) K/mm3 Baso # (Auto) 0.1 (0.0-0.1) K/mm3 Seg Neutrophils % 79.8 H (40.0-70.0) % Seg Neutrophils # 8.8 H (1.8-7.7) K/mm3 VBG pH (7.320-7.420) Sodium 131 L (137-145) mmol/L Potassium 4.9 (3.6-5.0) mmol/L Chloride 92.0 L (98-107) mmol/L Carbon Dioxide 26 (22-30) mmol/L Anion Gap 18 mmol/L BUN 14 (9-20) mg/dL Creatinine 1.3 (0.8-1.3) mg/dL Estimated GFR > 60 ml/min BUN/Creatinine Ratio 11 % Glucose 769 H* (75-100) mg/dL POC Glucose > 600 H (70-105) mg/dL Calcium 8.8 (8.4-10.2) mg/dL Total Bilirubin 1.00 (0.1-1.2) mg/dL AST 14 (5-40) units/L ALT 30 (7-56) units/L Alkaline Phosphatase 117 (35-129) units/L Total Protein 8.0 (6.3-8.2) g/dL Albumin 4.7 (3.9-5) g/dL Albumin/Globulin Ratio 1.4 % 08/17/21 Range/Units 20:47 WBC (4.5-11.0) K/mm3 RBC (3.65-5.03) M/mm3 Hgb (11.8-15.2) gm/dl Hct (35.5-45.6) % MCV (84-94) fl MCH (28-32) pg MCHC (32-34) % RDW (13.2-15.2) % Plt Count (140-440) K/mm3 Lymph % (Auto) (13.4-35.0) % [place] % (Auto) (0.0-7.3) % Eos % (Auto) (0.0-4.3) % Baso % (Auto) (0.0-1.8) % Lymph # (Auto) (1.2-5.4) K/mm3 [place] # (Auto) (0.0-0.8) K/mm3 Eos # (Auto) (0.0-0.4) K/mm3 Baso # (Auto) (0.0-0.1) K/mm3 Seg Neutrophils % (40.0-70.0) % Seg Neutrophils # (1.8-7.7) K/mm3 VBG pH 7.376 (7.320-7.420) Sodium (137-145) mmol/L Potassium (3.6-5.0) mmol/L Chloride (98-107) mmol/L Carbon Dioxide (22-30) mmol/L Anion Gap mmol/L BUN (9-20) mg/dL Creatinine (0.8-1.3) mg/dL Estimated GFR ml/min BUN/Creatinine Ratio % Glucose (75-100) mg/dL POC Glucose (70-105) mg/dL Calcium (8.4-10.2) mg/dL Total Bilirubin (0.1-1.2) mg/dL AST (5-40) units/L ALT (7-56) units/L Alkaline Phosphatase (35-129) units/L Total Protein (6.3-8.2) g/dL Albumin (3.9-5) g/dL Albumin/Globulin Ratio % Critical Care Time: Yes Critical care time in (mins) excluding proc time.: 35 Critical care attestation.: If time is entered above; I have spent that time in minutes in the direct care of this critically ill patient, excluding procedure time. ED Disposition Clinical Impression: Hyperglycemia, BMI 36.0-36.9,adult, Elevated blood pressure reading Disposition: 01 HOME / SELF CARE / HOMELESS Is pt being admited?: No Does the pt Need Aspirin: No Condition: Good Instructions: Preventing Type 2 Diabetes Mellitus, Hyperglycemia, [id number], Obesity, Adult Additional Instructions: As we discussed, patient most likely has type 2 diabetes. First-line treatment for this would be diet and lifestyle modification. Therefore, we recommend aggressive weight loss, exercise and physical activity as tolerated, consumption of fiber, vegetables, lean protein, avoidance of simple carbohydrates, fried and processed foods, and beverages and foods that are high in sugar. Patient was also found to have body mass index of 36.8, and elevated blood pressure. The aforementioned treatments would also be appropriate for these conditions. The patient should follow-up with a primary care doctor within the next 4 to 6 weeks. Patient may reference the [place] [employer] website, or CDC website for assistance in constructing the aforementioned dietary modifications. https://www.diabetes.org/healthy -living/recipes-nutrition/meal-planning/he-jgbhm-cqiupvs https://www.cdc.gov/diabetes/basics/type2.html Long-term complications of type 2 diabetes, obesity/elevated body mass index, and elevated blood pressure include stroke, heart attack, disability, paralysis, , and loss of quality of life. Please return to the emergency room right away with new pain, worsened pain, migration of pain, projectile vomiting, change in mental status, confusion, inability to tolerate liquid feeds, new, worsened or different symptoms not present on the initial emergency room evaluation. Referrals: AMBER ROSE MD [Staff Physician] - 3-5 Days [facility] [Provider Group] - 3-5 Days
[2020-12-31 00:40] VITALS: BP 140/94
== END 2020-12-31 01:00 | disposition home or self-care (01) ==
LOC: ED 19:13
DX: E11.65 Type 2 diabetes mellitus with hyperglycemia (principal); R03.0 Elevated blood-pressure reading, without diagnosis of hypertension; Z68.36 Body mass index [BMI] 36.0-36.9, adult
CPT/HCPCS: 36415; 80053; 82805; 82962; 85025; 96361; 96374; 99283; J7120; J1815